=== PATIENT | male | born 1995 | race African-American/Black ===

== ENCOUNTER 2020-04-13 01:11 | Emergency (ER) | payer MEDICAID ==
[~2020-04-13] VITALS: Ht 175.3 cm; Wt 74.8 kg
--- NOTE | 2020-04-13 01:25 | NUR ---
ED Nurse Note: Patient walked into ED c/o left wrist pain, states that he was playing basketball around 1999 today to which he fell, fell with palm facing down trying to soften his landing, reports of 7/10 pain. patient is able to move wrist however reports of pain. said extremity does have a deformity. patient is alert and oriented x4, ambulatory with a steady gait. VSS. patient was applied an ice pack. will wait for further orders
[2020-04-13 01:29] VITALS: BP 110/80
--- NOTE | 2020-04-13 01:36 | Emergency Room Report ---
History of Present Illness General Chief Complaint: Upper Extremity Injury Source: Patient Present Illness HPI This is a 24-year-old male who is left-hand dominant. He presents with chief complaint of left wrist pain. Onset was acute and occurred around 9 PM this evening. Was playing basketball and he fell with his arm behind him. He has pain to his left wrist. Worse with movement. Better with rest. Pain is 8 out of 10. No other injury. Did not pass out. Allergies: Coded Allergies: No Known Allergies (Unverified , 04/13/20) COVID-19 Screening Contact w/high risk pt: No Experienced COVID-19 symptoms?: No COVID-19 Testing performed [employer]: No Patient History Past Medical History: see triage record, old chart reviewed Past Surgical History: none Pertinent Family History: none Social History: Denies: smoking Immunizations: other Reviewed Nursing Documentation: PMH: Agreed; PSxH: Agreed Nursing Documentation-PMH Past Medical History: No Stated History Review of Systems Eye: Denies: eye pain, blurred vision ENT: Denies: ear pain, nose congestion, throat swelling Respiratory: Denies: cough, shortness of breath Cardiovascular: Denies: chest pain, palpitations Gastrointestinal: Denies: abdominal pain, diarrhea, nausea, vomiting Musculoskeletal: Reports: joint pain; Denies: back pain Skin: Denies: rash Neurological: Denies: headache, numbness Endocrine: Denies: increased thirst, increased urine Hematologic/Lymphatic: Denies: easy bruising All Other Systems: negative except mentioned in HPI Physical Exam Vital Signs Date Time Temp Pulse Resp B/P (MAP) Pulse Ox O2 Delivery O2 Flow Rate FiO2 04/13/20 01:20 98.4 58 16 113/83 (93) 98 Room Air Vitals normal Sp02 EP Interpretation: reviewed, normal General Appearance: well appearing, no apparent distress, alert Head: normocephalic, atraumatic Eyes: bilateral eye PERRL, bilateral eye EOMI ENT: hearing grossly normal, normal pharynx Neck: full range of motion, supple, no meningismus Respiratory: chest non-tender, lungs clear, normal breath sounds Cardiovascular #1: regular rate, rhythm, no murmur Gastrointestinal: normal bowel sounds, non tender, no mass, no organomegaly, no bruit, non-distended Musculoskeletal: back normal, gait/station normal, other - Left wrist: He has tenderness over the distal radius. Mild edema. No deformity noted. Pulse normal. Fingers nontender. Elbow nontender. Psychiatric: mood/affect normal Procedures Splinting Splinting : Consent: Verbal Location: Left wrist Pre-Made Type: velcro Splint: volar Pre-Proc Neuro Vasc Exam: normal Post-Proc Neuro Vasc Exam: normal Patient Tolerated: Well Complications: None Medical Decision Making Diagnostic Impression: Primary Impression: Left wrist sprain Qualified Codes: S63.502A - Unspecified sprain of left wrist, initial encounter ER Course Patient presents with left wrist injury. I see no obvious fracture. He does have calcification in between his distal ulnar and radius. Patient splinted. Will discharge home. Other X-Ray Diagnostic Results Other X-Ray Diagnostic Results : X-Ray ordered: Left wrist x-rays # of Views/Limited Vs Complete: 3 View Indication: Pain EP Interpretation: Yes Interpretation: no dislocation, no soft tissue swelling, no fractures Impression: No acute disease Electronically Signed by: Jag Noonan MD Last Vital Signs Date Time Temp Pulse Resp B/P (MAP) Pulse Ox O2 Delivery O2 Flow Rate FiO2 04/13/20 01:29 98.4 85 16 110/80 98 Room Air Status: improved Disposition: HOME, SELF-CARE Condition: Stable Scripts Ibuprofen* (MOTRIN*) 600 Mg Tablet 600 MG ORAL Q6H PRN for For Pain, #30 TAB 0 Refills Prov: Jag Noonan MD 04/13/20 Additional Instructions: Elevate wrist. Ice pack to the area. Wear splint. Follow-up with your doctor in 7 days. You may need repeat x-ray if continue to have pain. Return if worse. Jag Noonan MD Apr 13, 2020 01:36
[2020-04-13] MEDS ORDERED: HYDROcodone/Acetamin 5/325 tab ONE (01:37)
[2020-04-13] MEDS ORDERED: HYDROcodone/Acetamin 5/325 tab ORAL ONE (01:45)
[2020-04-13] MEDS ORDERED: IBUPROFEN600 M1 ORAL (02:07)
[2020-04-13 02:13] VITALS: BP 110/80
--- NOTE | 2020-04-13 02:13 | NUR ---
ER DISCHARGE NOTE: Patient is cleared to be discharged per ERMD. Patient verbalized understanding of discharge instructions. Patient was provided with a brace. Patient departed to home with all belongings in stable condition.
--- NOTE | 2020-04-13 03:58 | Diagnostic Imaging Report ---
EXAM: XR Left Wrist Complete, 3 Views CLINICAL HISTORY: TRAUMA TECHNIQUE: Frontal, lateral and oblique views of the left wrist. COMPARISON: No relevant prior studies available. FINDINGS: Bones/joints: No definite plain film evidence for acute fracture or dislocation. If there is continued clinical concern for fracture, consider CT or MRI for further evaluation. A bony spurlike structure is seen extending off the medial aspect of the distal radius which is likely related to an osteochondroma. Soft tissues: Unremarkable. No radiopaque foreign body. IMPRESSION: No definite plain film evidence for acute fracture or dislocation. If there is continued clinical concern for fracture, consider CT or MRI for further evaluation.
== END 2020-04-13 02:13 | disposition home or self-care (01) ==
LOC: EMR 01:45
DX: S63.502A Unspecified sprain of left wrist, initial encounter (principal); W19.XXXA Unspecified fall, initial encounter; Y93.67 Activity, basketball; Y92.9 Unspecified place or not applicable
CPT/HCPCS: 73110; Z7502; 99283